=== PATIENT | female | born 1945 | race Caucasian/White ===

== ENCOUNTER → 2018-11-29 | Outpatient (CLI) | payer MEDICARE ==
[~2018-11-29] MED LIST: IOHEXOL 350 MG/ML 100ML INFUS..BTL IV ONE
== END | disposition home or self-care (01) ==
LOC: RAH 08:17
PROVIDERS: ATTEND Internal Medicine Gastroenterology
DX: K57.30 Diverticulosis of large intestine without perforation or abscess without bleeding (principal); N28.1 Cyst of kidney, acquired; Z90.710 Acquired absence of both cervix and uterus
CPT/HCPCS: 74178; Q9967

== ENCOUNTER 2022-08-16 11:42 | Emergency (ER) | payer MEDICARE ==
[~2022-08-16] VITALS: Ht 165.1 cm; Wt 63.5 kg
[2022-08-16 12:00] VITALS: BP 184/78
[2022-08-16 13:28] LABS: BASOPHILS % (AUTO) 0.5 % (0.0-5.0); EOSINOPHILS % (AUTO) 3.1 % (0.0-8.0); HEMATOCRIT 41.1 % (36-48); LYMPHOCYTES % (AUTO) 17.3 % (21.0-51.0); MEAN CORPUSCULAR HEMOGLOBIN 30.6 pg (27.0-33.0); MEAN CORPUSCULAR HGB CONC 32.6 g/dL (32.0-36.0); MEAN CORPUSCULAR VOLUME 93.8 fL (79-99); MONOCYTES % (AUTO) 7.8 % (3.0-13.0); NEUTROPHILS % (AUTO) 71.1 % (40.0-77.0); PLATELET COUNT (AUTO) 231 K/uL (130-400); RED BLOOD CELL COUNT(AUTO) 4.38 MIL/uL (4.00-5.50); RED CELL DISTRIBUTION WIDTH 11.8 % (11.0-15.5); WHITE BLOOD COUNT (AUTO) 5.8 K/uL (4.8-10.8)
[2022-08-16] MEDS ORDERED: LORAZEPAM 0.5 MG TABLET PO ONE (13:30)
[2022-08-16] MEDS ORDERED: KETOROLAC 30MG VIAL (30MG/ML) IM ONE (13:30)
[2022-08-16 13:38] LABS: POTASSIUM 4.5 mmol/L (3.5-5.1)
[2022-08-16 13:43] LABS: TOTAL PROTEIN, SERUM 7.6 g/dL (6.0-8.3)
[2022-08-16 13:51] LABS: APPEARANCE,URINE CLEAR (CLEAR); BILIRUBIN,URINE NEGATIVE (NEGATIVE); COLOR,URINE LIGHT-YELLOW (YELLOW); GLUCOSE, URINE (UA) NEGATIVE (NEGATIVE); KETONES,URINE 5 mg/dL (NEGATIVE); LEUKOCYTE ESTERASE ,URINE NEGATIVE Leu/uL (NEGATIVE); NITRATE,URINE NEGATIVE (NEGATIVE); OCCULT BLOOD,URINE NEGATIVE (NEGATIVE); PH,URINE 5.5 (5.0-8.0); PROTEIN,URINE NEGATIVE (NEGATIVE); UROBILINOGEN,URINE 0.2 mg/dL (0.2-1.0)
[2022-08-16 14:15] LABS: MUCUS,URINE RARE LPF (None Seen); SQUAMOUS EPITHELIAL CELL,UR RARE /HPF (0-2)
[2022-08-16] MEDS ORDERED: TLSO BRACE (16:00)
[2022-08-16] MEDS ORDERED: TRAM50TA4 PO (16:02)
== END 2022-08-16 16:10 | disposition home or self-care (01) ==
LOC: EDH 11:42
DX: S32.018A Other fracture of first lumbar vertebra, initial encounter for closed fracture (principal); M19.90 Unspecified osteoarthritis, unspecified site; Z90.710 Acquired absence of both cervix and uterus; Z79.899 Other long term (current) drug therapy; Z98.890 Other specified postprocedural states; W01.0XXA Fall on same level from slipping, tripping and stumbling without subsequent striking against object, initial encounter; Y93.89 Activity, other specified; Y92.89 Other specified places as the place of occurrence of the external cause; Y99.8 Other external cause status
CPT/HCPCS: 99285; 72131; 80053; 85025; 81001; 36415; 96372; J1885

== ENCOUNTER → 2023-08-24 | Outpatient (CLI) | payer MEDICARE ==
[~2023-08-24] MED LIST changes: +AMLO2.5T4 PO; +ASPI-1197 PO; +DONE10TA43 PO; +ESCI-8 PO; +FEXO-263 PO; -IOHEXOL 350 MG/ML 100ML INFUS..BTL IV ONE; +L. A1TAB15 PO; +LEVO100C4 PO; +LIOT25 PO; +MEMA10TA55 PO; +PANT40GR PO; +POLY17PO4 PO; +TLSO BRACE; +TRAM50TA4 PO
[2023-08-24 14:45] LABS: CREATININE 0.9 mg/dL (0.5-1.5)
== END | disposition home or self-care (01) ==
LOC: LAB 10:00
PROVIDERS: ATTEND Student in an Organized Health Care Education/Training Program
DX: K57.30 Diverticulosis of large intestine without perforation or abscess without bleeding (principal)
CPT/HCPCS: 36415; 82565; 84520

== ENCOUNTER → 2023-08-29 | Outpatient (CLI) | payer MEDICARE ==
[~2023-08-29] MED LIST changes: +IOHEXOL-350 75 ML VIAL IV ONE
== END | disposition home or self-care (01) ==
LOC: RAH 10:52
PROVIDERS: ATTEND Student in an Organized Health Care Education/Training Program
DX: K63.89 Other specified diseases of intestine (principal); K57.30 Diverticulosis of large intestine without perforation or abscess without bleeding; M47.815 Spondylosis without myelopathy or radiculopathy, thoracolumbar region; N28.1 Cyst of kidney, acquired; I70.0 Atherosclerosis of aorta
CPT/HCPCS: 74178; Q9967

== ENCOUNTER 2023-11-25 11:20 | Emergency (ER) | payer MEDICARE ==
[~2023-11-25] VITALS: Ht 165.1 cm; Wt 51.3 kg
[~2023-11-25 11:20] MED LIST changes: -ASPI-1197 PO; -ESCI-8 PO; -FEXO-263 PO; +FLUC200T12 PO; +HYDR200T75 PO; -IOHEXOL-350 75 ML VIAL IV ONE; -L. A1TAB15 PO; +MEMA10TA21 PO; -MEMA10TA55 PO; -POLY17PO4 PO; -TLSO BRACE; -TRAM50TA4 PO
[2023-11-25 13:58] LABS: BASOPHILS # (AUTO) 0.03 K/uL (0.00-0.20); BASOPHILS % (AUTO) 0.4 % (0.0-5.0); EOSINOPHILS # (AUTO) 0.09 K/uL (0.00-0.70); EOSINOPHILS % (AUTO) 1.3 % (0.0-8.0); HEMATOCRIT 31.9 % (36-48); IMMATURE GRANULOCYTE ABSOLUTE 0.02 K/uL (0-1); LYMPHOCYTES # (AUTO) 0.8 K/uL (1.0-4.8); LYMPHOCYTES % (AUTO) 10.9 % (21.0-51.0); MEAN CORPUSCULAR HEMOGLOBIN 30.2 pg (27.0-33.0); MEAN CORPUSCULAR HGB CONC 31.7 g/dL (32.0-36.0); MEAN CORPUSCULAR VOLUME 95.5 fL (79-99); MONOCYTES # (AUTO) 0.6 K/uL (0.1-1.0); MONOCYTES % (AUTO) 8.8 % (3.0-13.0); NEUTROPHILS # (AUTO) 5.5 K/uL (1.8-7.7); NEUTROPHILS % (AUTO) 78.3 % (40.0-77.0); PLATELET COUNT (AUTO) 248 K/uL (130-400); RED BLOOD CELL COUNT(AUTO) 3.34 MIL/uL (4.00-5.50); RED CELL DISTRIBUTION WIDTH 17.6 % (11.0-15.5); WHITE BLOOD COUNT (AUTO) 7.1 K/uL (4.8-10.8)
[2023-11-25 14:17] LABS: CREATININE 0.7 mg/dL (0.5-1.0); POTASSIUM 3.6 mmol/L (3.5-5.1)
[2023-11-25 14:22] LABS: ALBUMIN 2.9 g/dL (3.5-5.0); BILIRUBIN,TOTAL 0.3 mg/dL (0.2-1.0); TOTAL PROTEIN, SERUM 6.3 g/dL (6.0-8.3)
[2023-11-25] MEDS: CEFTRIAXONE 1G VIAL IVPB ONE (14:29)
[2023-11-25] MEDS ORDERED: IOHEXOL-350 75 ML VIAL IV ONE (15:34)
[2023-11-25] MEDS ORDERED: CEPH500B PO (17:46)
[2023-11-25 17:50] VITALS: BP 144/80; PULSE 70; RESP 16; O2SAT 100
== END 2023-11-25 17:53 | disposition home or self-care (01) ==
LOC: EDH 11:20
DX: L03.311 Cellulitis of abdominal wall (principal); Z90.710 Acquired absence of both cervix and uterus; Z79.899 Other long term (current) drug therapy
CPT/HCPCS: 99285; 74177; 96365; 80053; 85025; 36415; J0696; Q9967